=== PATIENT | female | born 1990 | race Caucasian/White ===

== ENCOUNTER 2022-10-02 07:57 | Inpatient (IN) ==
[2022-10-02] MEDS ORDERED: OXYTOCIN 30 UNITS/500 ML BAG IV PRN ×2 (09:33→20:01)
[2022-10-02] MEDS ORDERED: LIDOCAINE 1% LOCAL 20 ML VIAL INFIL PRN (09:33)
[2022-10-02] MEDS ORDERED: DINOPROSTONE 10 MG INSERT PV ONE (09:53)
--- NOTE | 2022-10-02 10:11 | History & Physical Report ---
Date of Service October 02, 2022 Assessment & Plan Admission and Anticipated Discharge Date Admission Date: October 02, 2022 History of Present Illness Chief Complaint: induction of labor Primary Care Provider: NO PCP 32 F P0000 at 40.4 weeks admitted to L&D for IOL for post-dates. GBS is negative. Covid is negative. Allergies Allergy/AdvReac Type Severity Reaction Status Date / Time chlorhexidine AdvReac Rash Verified 10/02/22 10:08 [From ChloraPrep Clear] isopropyl alcohol AdvReac Rash Verified 10/02/22 10:08 [From ChloraPrep Clear] Home Medications Medication Instructions Recorded Confirmed Type ferrous sulfate 325 mg (65 mg 325 mg PO DAILY 10/02/22 10/02/22 History iron) tablet (iron) prenat.vits,stefani,[id number] 1 tab PO DAILY 10/02/22 10/02/22 History Patient History Surgical History H/O foot surgery H/O oral surgery H/O shoulder surgery Social History Smoking Status: Never smoker Hx Alcohol Use: No Hx Substance Use: No Beliefs That Will Affect Care: None marital status: Current Living Situation: Spouse Other Information That Helps Us Care for You: No Feels Safe at Home: Yes Safety Concerns: Feels Safe At This Time Assistive Devices: None OB History GBS is negative [employer] History neg Review of Systems All systems reviewed & are unremarkable except as noted in HPI & below Physical Exam Constitutional: WD/WN, vitals as above Eyes: PERRL, conjunctivae normal, anicteric sclerae Respiratory: normal respiratory effort, lungs clear to auscultation Cardiovascular: RRR, no murmur, no edema Gastrointestinal (Abdomen): Inspection/Auscultation: abdomen normal to inspection Musculoskeletal: no cyanosis or clubbing, extremities motor strength 5/5 Skin: no rashes, warm and dry Neurologic: patellar DTR's 2+ bilat, sensation intact Psychiatric: A+Ox3, euthymic affect Genitourinary: no vaginal lesions, no adnexal mass OB Exam Abdomen: + fundal height and + vertex (EFW 7-7.5 lbs.) Manual OB Exam: + cervical dilation fingertip, + cervical effacement 50% and + station high OB Exam Monitor Tracing: + external FHT monitor used, + external uterine monitor used, + category I and + normal FHT variability Cervix firm/posterior Cervidil 10 mg placed vaginally Results & Data Vital Signs (Past 12 Hours) Vital Signs Temp Pulse Resp BP 10/02/22 08:11 36.5 C 80 20 116/74 Code Status & VTE Plan VTE Prophylaxis Plan VTE Prophylaxis will be ordered: No Monitoring External Monitor Cat 1
[2022-10-02 10:23] LABS: Hematocrit (blood only) 32.6 % (37.0-47.0); Hemoglobin 11.5 g/dl (12.0-16.0); Mean Corpuscular Hemoglobin 31.6 pg (25.0-34.0); Mean Corpuscular Hgb Conc 35.3 g/dL (32.0-36.0); Mean Corpuscular Volume 89.6 fL (80.0-100.0); Mean Platelet Volume 10.4 fL (9.4-12.4); Platelet Count 240 K/uL (130-400); RDW Coefficient of Variation 12.9 % (11.5-14.5); RDW Standard Deviation 42.5 fL (36.4-46.3); Red Blood Count 3.64 M/uL (4.20-5.40); White Blood Count 8.34 K/ul (4.8-10.8)
[2022-10-02] MEDS: LACTATED RINGER'S 1,000 ML IV PRN ×2 (13:59→15:48)
[2022-10-02] MEDS ORDERED: ePHEDrine sulfate 50 MG/ML AMP ONE (15:29)
[2022-10-02] MEDS ORDERED: fentaNYL citrate PF 100 MCG/2 ML VIAL ONE (15:30)
[2022-10-02] MEDS ORDERED: BUPIVACAINE 0.25% PF 30 ML VIAL ONE (15:30)
[2022-10-02] MEDS ORDERED: LIDOCAINE 2%/EPINEPHRINE 1:200,000 20 ML PF ONE (15:30)
[2022-10-02] MEDS ORDERED: SODIUM CHLORIDE 0.9% PF INJ 10 ML VIAL ONE (15:30)
[2022-10-02] MEDS ORDERED: ROPIVACAINE 0.5% PF 5 MG/ML 20 ML VIAL EPI PRN (15:31)
[2022-10-02] MEDS ORDERED: NALOXONE HCL 1 MG in SODIUM CHLORIDE 0.9% 1000ML 1,000 ML IV PRN (15:31)
[2022-10-02] MEDS ORDERED: ePHEDrine sulfate 50 MG/ML AMP IV PRN (15:31)
[2022-10-02] MEDS ORDERED: LIDOCAINE 2% MPF LOCAL 5 ML VIAL EPI PRN (15:31)
[2022-10-02] MEDS ORDERED: BUPIVACAINE 0.25% PF 30 ML VIAL EPI STA (15:31)
[2022-10-02] MEDS ORDERED: NALOXONE HCL 0.4 MG/1 ML VIAL/CARP IV PRN (15:31)
[2022-10-02] MEDS ORDERED: NALBUPHINE HCL INJ 10 MG/ML AMP IV PRN (15:31)
[2022-10-02] MEDS ORDERED: diphenhydrAMINE 50 MG/ML VIAL IV PRN (15:31)
[2022-10-02] MEDS ORDERED: fentaNYL 2MCG/ML ROPIVACAINE 1.25MG/ML 100 ML BAG EPI PRN (15:31)
[2022-10-02] MEDS ORDERED: SODIUM CHLORIDE 0.9% PF INJ 10 ML VIAL EPI PRN (15:31)
[2022-10-02] MEDS ORDERED: fentaNYL 2MCG/ML ROPIVACAINE 1.25MG/ML 100 ML BAG EPI ONE (15:31)
[2022-10-02] MEDS ORDERED: BUPIVACAINE 0.25% PF 30 ML VIAL EPI PRN (15:31)
[2022-10-02] MEDS ORDERED: fentaNYL citrate PF 100 MCG/2 ML VIAL EPI STA (15:31)
[2022-10-02] MEDS ORDERED: SODIUM CHLORIDE 0.9% PF INJ 10 ML VIAL EPI STA (15:31)
[2022-10-02] MEDS ORDERED: LIDOCAINE 2%/EPINEPHRINE 1:200,000 20 ML PF EPI STA (15:31)
[2022-10-02] MEDS ORDERED: fentaNYL citrate PF 100 MCG/2 ML VIAL EPI PRN (15:31)
--- NOTE | 2022-10-02 15:34 | Anesthesiology Consultation ---
Date of Service October 02, 2022 Assessment & Plan (1) Encounter for pre-operative examination: Chart Review Chart Review: Patient NOT seen in Pre Admission Testing and Acceptable Risk for Labor Epidural Consults Requested none History Height/Weight Height: 5 ft 6 in Weight: 80.739 kg Allergies Allergy/AdvReac Type Severity Reaction Status Date / Time chlorhexidine AdvReac Rash Verified 10/02/22 10:08 [From ChloraPrep Clear] isopropyl alcohol AdvReac Rash Verified 10/02/22 10:08 [From ChloraPrep Clear] Medications Home Medications Medication Instructions Recorded Confirmed Last Taken ferrous sulfate 325 mg (65 mg 325 mg PO DAILY 10/02/22 10/02/22 Unknown iron) tablet (iron) prenat.vits,stefani,[id number]-[id number] 1 tab PO DAILY 10/02/22 10/02/22 Unknown Active Medications Generic Name Dose Route Start Last Admin Trade Name Freq PRN Reason Stop Dose Admin Lactated Ringer's 1,000 mls @ 125 mls/hr 10/02/22 09:33 10/02/22 15:06 Lr IV 10/04/22 09:32 999 mls/hr .Q8H PRN Infusion L&D Protocol Protocol Past Medical History Medical History (Updated 10/02/22 @ 15:34 by Tyrell Corral MD) Encounter for pre-operative examination healthy Exercise / Class Metabolic Activity II 4-5 Yardwork/Stairs/Walk up hill Past Surgical History Surgical History H/O foot surgery H/O oral surgery H/O shoulder surgery Past Anesthesia History No Hx of Anesthesia Complications and No Family Hx of Anesthesia Complications History of PONV No Hx of PONV and No Hx of Motion Sickness Social History Smoking Status: Never smoker Hx Alcohol Use: No Hx Substance Use: No substance use type: does not use Physical Exam Vital Signs Last Vital Signs Temp 36.7 C 10/02/22 11:58 Pulse 77 10/02/22 14:52 Resp 18 10/02/22 11:58 BP 109/71 10/02/22 14:52 Testing Laboratory Results 10/02/22 09:41
--- NOTE | 2022-10-02 16:14 | Labor Progress Brief Note ---
Date of Service October 02, 2022 Assessment & Plan Admission and Anticipated Discharge Date Admission Date: October 02, 2022 Physical Exam Genitourinary: Manual OB Exam: + cervical dilation 10 cm, + cervical effacement 100%, + station 0 and + amniotic fluid clear AROM with Amni-hook clear fluid Results & Data Vital Signs (Past 12 Hours) Vital Signs Temp Pulse Resp BP Pulse Ox 10/02/22 16:11 79 100 10/02/22 16:10 74 124/74 10/02/22 16:06 73 100 10/02/22 16:05 73 115/74 10/02/22 16:03 80 112/71 10/02/22 16:01 70 110/68 100 10/02/22 15:59 74 112/76 10/02/22 15:57 77 114/73 10/02/22 15:56 86 100 10/02/22 15:53 116 H 93 10/02/22 15:51 76 100 10/02/22 15:46 94 H 100 10/02/22 15:41 83 100 10/02/22 14:52 77 109/71 10/02/22 11:58 36.7 C 76 18 119/75 10/02/22 10:24 81 99/65 L 10/02/22 08:11 36.5 C 80 20 116/74
[2022-10-02] MEDS ORDERED: HYDROCORTISONE ACETATE 25 MG SUPP PR PRN (20:01)
[2022-10-02] MEDS ORDERED: BENZOCAINE 20% AER SPR 82.5 GM CAN EXT PRN (20:01)
[2022-10-02] MEDS ORDERED: bisacodyL 10 MG SUPP PR PRN (20:01)
[2022-10-02] MEDS ORDERED: ACETAMINOPHEN 325 MG TAB PO PRN (20:01)
[2022-10-02] MEDS ORDERED: DIPHTHERIA/TETANUS/PERTUSSIS Vaccine (Tdap, Age 7+yrs) 0.5mL SYR/VL IM ONE (20:01)
--- NOTE | 2022-10-02 20:05 | Delivery Summary ---
Vaginal Delivery Summary Date of Service October 02, 2022 Vaginal Delivery Summary Delivery Note live female ROWAN with delayed cord clamping and loose nuchal cord x1 reduced at time of delivery. Apgars and weight pending. Cord blood obtained followed by spontaneous delivery of intact placenta. Second degree tear repaired with 3/0 Vicryl suture. Final sponge, needle and instrument count are correct. EBL 250 ml. Mom and baby stable.
--- NOTE | 2022-10-02 21:23 | Anesthesia Procedure Note ---
Date of Service October 02, 2022 Anesthesia Post Epidural Note Vital Signs Vital Signs: Temp Pulse Resp BP Pulse Ox 36.9 C 88 16 104/68 97 10/02/22 17:43 10/02/22 21:09 10/02/22 17:43 10/02/22 21:09 10/02/22 19:46 Pain Intensity Abdomen: Pain Intensity: 0 Notes Mental Status: alert / awake / arousable and participated in evaluation Nausea / Vomiting: adequately controlled Pain: adequately controlled Airway Patency, RR, SpO2: stable & adequate BP & HR: stable & adequate Hydration State: stable & adequate Neuraxial Anesthesia: was administered and sensory block is resolving Anesthetic Complications: no major complications apparent and Pt Satisfied with anesthetic care Epidural: Removed without complications and With tip intact
[2022-10-03 07:12] LABS: Hemoglobin 10.9 g/dl (12.0-16.0); Mean Corpuscular Hemoglobin 31.9 pg (25.0-34.0); Mean Corpuscular Hgb Conc 35.2 g/dL (32.0-36.0); Mean Corpuscular Volume 90.6 fL (80.0-100.0); Mean Platelet Volume 9.9 fL (9.4-12.4); Platelet Count 216 K/uL (130-400); RDW Standard Deviation 43.1 fL (36.4-46.3); Red Blood Count 3.42 M/uL (4.20-5.40); White Blood Count 17.79 K/ul (4.8-10.8)
[2022-10-03] MEDS ORDERED: FERROUS SULFATE 325 MG TAB PO SCH (08:00)
[2022-10-03] MEDS ORDERED: PRENATAL VITAMIN 1 TAB PO SCH (08:00)
--- NOTE | 2022-10-03 08:19 | Obstetrical Progress Note ---
Date of Service October 03, 2022 Assessment & Plan Admission and Anticipated Discharge Date Admission Date: October 02, 2022 Subjective Patient is seen and examined. She feels well, no complaints. Ambulating without dizziness Voiding without difficulty Tolerating regular diet with out N&V Bleeding is minimal No fever/ chills/ CP/ SOB/ N&V/ Leg pain Breast feeding without problems Vital Signs Temp Pulse Pulse Resp BP BP Pulse Ox 10/03/22 03:41 36.7 C 69 18 111/74 98 10/02/22 23:22 36.7 C 79 19 110/71 99 10/02/22 21:25 18 10/02/22 20:55 18 10/02/22 20:40 18 10/02/22 20:25 18 10/02/22 21:55 18 10/02/22 21:54 85 108/70 10/02/22 21:39 80 98/62 L 10/02/22 21:24 90 103/66 10/02/22 21:09 88 104/68 10/02/22 20:54 86 107/70 10/02/22 20:39 81 107/69 10/02/22 20:24 84 106/66 O2 Del Method 10/03/22 03:41 Room Air 10/02/22 23:22 Room Air 10/02/22 21:25 10/02/22 20:55 10/02/22 20:40 10/02/22 20:25 10/02/22 21:55 10/02/22 21:54 10/02/22 21:39 10/02/22 21:24 10/02/22 21:09 10/02/22 20:54 10/02/22 20:39 10/02/22 20:24 Lab Results 10/02/22 10/02/22 10/03/22 Range/Units 09:41 Unknown 06:50 WBC 8.34 17.79 H (4.8-10.8) K/ul RBC 3.64 L 3.42 L (4.20-5.40) M/uL Hgb 11.5 L 10.9 L (12.0-16.0) g/dl Hct 32.6 L 31.0 L (37.0-47.0) % MCV 89.6 90.6 (80.0-100.0) fL MCH 31.6 31.9 (25.0-34.0) pg MCHC 35.3 35.2 (32.0-36.0) g/dL RDW Std Deviation 42.5 43.1 (36.4-46.3) fL RDW Coeff of Jean 12.9 13.0 (11.5-14.5) % Plt Count 240 216 (130-400) K/uL MPV 10.4 9.9 (9.4-12.4) fL SARS-CoV-2, RNA, NAAT NEGATIVE (NEGATIVE) PE: General: Alert, orientedx3, NAD Abd: soft, NT, fundus firm, below Umbilicus Perineum intact, Lochia rubra minimal Ext; NT, no edema AP: 32 yo s/p , ppd# 1 VSS Afebrile doing well WBCC elevated, repeat in am Continue routine care All questions were answered D/C home tomorrow Results & Data Vital Signs (Past 12 Hours) Vital Signs Temp Pulse Pulse Resp BP BP Pulse Ox 10/03/22 03:41 36.7 C 69 18 111/74 98 10/02/22 23:22 36.7 C 79 19 110/71 99 10/02/22 21:25 18 10/02/22 20:55 18 10/02/22 20:40 18 10/02/22 20:25 18 10/02/22 21:55 18 10/02/22 21:54 85 108/70 10/02/22 21:39 80 98/62 L 10/02/22 21:24 90 103/66 10/02/22 21:09 88 104/68 10/02/22 20:54 86 107/70 10/02/22 20:39 81 107/69 10/02/22 20:24 84 106/66 O2 Del Method 10/03/22 03:41 Room Air 10/02/22 23:22 Room Air 10/02/22 21:25 10/02/22 20:55 10/02/22 20:40 10/02/22 20:25 10/02/22 21:55 10/02/22 21:54 10/02/22 21:39 10/02/22 21:24 10/02/22 21:09 10/02/22 20:54 10/02/22 20:39 10/02/22 20:24
[2022-10-03] MEDS: DOCUSATE SODIUM 100 MG CAP PO SCH ×2 (08:25→20:33)
[2022-10-03] MEDS: FERROUS SULFATE 325 MG TAB PO SCH (08:26)
[2022-10-03] MEDS: IBUPROFEN 600 MG TAB PO PRN (08:26)
[2022-10-03] MEDS: PRENATAL VITAMIN 1 TAB PO SCH (08:26)
[2022-10-03] MEDS ORDERED: bisacodyL 5 MG TABEC PO SCH (20:00)
[2022-10-04 06:47] LABS: Basophils # (auto) 0.07 K/uL (0-0.2); Basophils % (auto) 0.5 %; Eosinophils # (auto) 0.27 K/uL (0-0.50); Eosinophils % (auto) 1.9 %; Hematocrit (blood only) 28.9 % (37.0-47.0); Hemoglobin 10.1 g/dl (12.0-16.0); Immature Granulocytes # (auto) 0.07 K/uL (0.01-0.20); Immature Granulocytes % (auto) 0.5 %; Lymphocytes # (auto) 2.43 K/uL (1.2-3.4); Lymphocytes % (auto) 17.5 %; Mean Corpuscular Hemoglobin 31.9 pg (25.0-34.0); Mean Corpuscular Hgb Conc 34.9 g/dL (32.0-36.0); Mean Corpuscular Volume 91.2 fL (80.0-100.0); Monocytes # (auto) 0.69 K/uL (0.11-0.59); Neutrophils # (auto) 10.34 K/uL (1.40-6.50); Neutrophils % (auto) 74.6 %; Platelet Count 212 K/uL (130-400); RDW Coefficient of Variation 13.3 % (11.5-14.5); RDW Standard Deviation 44.3 fL (36.4-46.3); Red Blood Count 3.17 M/uL (4.20-5.40); White Blood Count 13.87 K/ul (4.8-10.8)
[2022-10-04] MEDS: DOCUSATE SODIUM 100 MG CAP PO SCH (08:19)
[2022-10-04] MEDS: PRENATAL VITAMIN 1 TAB PO SCH (08:19)
[2022-10-04] MEDS: FERROUS SULFATE 325 MG TAB PO SCH (08:20)
[2022-10-04] MEDS: IBUPROFEN 600 MG TAB PO PRN (08:21)
--- NOTE | 2022-10-04 13:22 | Obstetrical Progress Note ---
Date of Service October 04, 2022 Assessment & Plan Admission and Anticipated Discharge Date Admission Date: October 02, 2022 Subjective Late entry: She feels well, no complaints. Ambulating without dizziness Voiding without difficulty Tolerating regular diet with out N&V Bleeding is minimal No fever/ chills/ CP/ SOB/ N&V/ Leg pain Breast feeding without problems Vital Signs Temp Pulse Resp BP Pulse Ox O2 Del Method 10/04/22 11:23 36.6 C 70 16 109/73 97 10/04/22 07:45 36.6 C 70 16 109/73 97 Room Air Lab Results 10/02/22 10/02/22 10/03/22 Range/Units 09:41 Unknown 06:50 WBC 8.34 17.79 H (4.8-10.8) K/ul RBC 3.64 L 3.42 L (4.20-5.40) M/uL Hgb 11.5 L 10.9 L (12.0-16.0) g/dl Hct 32.6 L 31.0 L (37.0-47.0) % MCV 89.6 90.6 (80.0-100.0) fL MCH 31.6 31.9 (25.0-34.0) pg MCHC 35.3 35.2 (32.0-36.0) g/dL RDW Std Deviation 42.5 43.1 (36.4-46.3) fL RDW Coeff of Jean 12.9 13.0 (11.5-14.5) % Plt Count 240 216 (130-400) K/uL MPV 10.4 9.9 (9.4-12.4) fL Immature Gran % (Auto) % Neut % (Auto) % Lymph % (Auto) % Crisp % (Auto) % Eos % (Auto) % Baso % (Auto) % Neut # (Auto) (1.40-6.50) K/uL Lymph # (Auto) (1.2-3.4) K/uL Crisp # (Auto) (0.11-0.59) K/uL Eos # (Auto) (0-0.50) K/uL Baso # (Auto) (0-0.2) K/uL Immature Gran # (Auto) (0.01-0.20) K/uL SARS-CoV-2, RNA, NAAT NEGATIVE (NEGATIVE) 10/04/22 Range/Units 06:22 WBC 13.87 H (4.8-10.8) K/ul RBC 3.17 L (4.20-5.40) M/uL Hgb 10.1 L (12.0-16.0) g/dl Hct 28.9 L (37.0-47.0) % MCV 91.2 (80.0-100.0) fL MCH 31.9 (25.0-34.0) pg MCHC 34.9 (32.0-36.0) g/dL RDW Std Deviation 44.3 (36.4-46.3) fL RDW Coeff of Jean 13.3 (11.5-14.5) % Plt Count 212 (130-400) K/uL MPV 10.0 (9.4-12.4) fL Immature Gran % (Auto) 0.5 % Neut % (Auto) 74.6 % Lymph % (Auto) 17.5 % Crisp % (Auto) 5.0 % Eos % (Auto) 1.9 % Baso % (Auto) 0.5 % Neut # (Auto) 10.34 H (1.40-6.50) K/uL Lymph # (Auto) 2.43 (1.2-3.4) K/uL Crisp # (Auto) 0.69 H (0.11-0.59) K/uL Eos # (Auto) 0.27 (0-0.50) K/uL Baso # (Auto) 0.07 (0-0.2) K/uL Immature Gran # (Auto) 0.07 (0.01-0.20) K/uL SARS-CoV-2, RNA, NAAT (NEGATIVE) PE: General: Alert, orientedx3, NAD Abd: soft, NT, fundus firm, below Umbilicus Perineum intact, Lochia rubra minimal Ext; NT, no edema AP: 32 yo s/p , ppd# 2 VSS Afebrile doing well Continue routine care All questions were answered D/C home , f/u in office Results & Data Vital Signs (Past 12 Hours) Vital Signs Temp Pulse Resp BP Pulse Ox O2 Del Method 10/04/22 11:23 36.6 C 70 16 109/73 97 10/04/22 07:45 36.6 C 70 16 109/73 97 Room Air
== END 2022-10-04 13:30 | disposition home or self-care (01) | DRG 807 ==
LOC: 4S1 07:57 → 4E2 22:38